=== PATIENT | female | born 1980 | race Caucasian/White ===

== ENCOUNTER 2023-04-20 19:51 | Emergency (ER) | payer OTHER ==
[2023-04-20 20:28] VITALS: BP 133/95
[2023-04-20] MEDS ORDERED: BACITRACIN ZINC OINT 1 PACKET TOP STA (20:51)
[2023-04-20] MEDS ORDERED: TETANUS/DIPHTHERIA/PERTUSSIS 0.5 ML SYRINGE IM ONE (20:51)
[2023-04-20] MEDS ORDERED: AMOX/CLAV 875 MG/125 MG TABLET PO STA (20:51)
--- NOTE | 2023-04-20 20:53 | ED Physician Documentation ---
History of Present Illness - Stated complaint Stated Complaint: DOG BITE TO FACE - Chief complaint Chief Complaint: Wound - Additonal information Additional information: Patient 42-year-old female presenting to the emergency department with chief complaint of dog bite to face. Was playing with the family dog who is site impaired. Dog does not have history of similar events. Became overly excited and bit her chin. Unknown last tetanus. Review of Systems Constitutional: denies: Fever Eyes: denies: Loss of vision Ears: denies: Loss of hearing Nose: denies: Rhinorrhea / runny nose Throat: denies: Dental pain / toothache Cardiac: denies: Chest pain / pressure Respiratory: denies: Dyspnea GI: denies: Abdominal Pain : denies: Dysuria Musculoskeletal: denies: Neck pain Neurologic: denies: Generalized weakness Psychiatric: denies: Depressed PD PAST MEDICAL HISTORY - Present Medications Home Medications: Ambulatory Orders Medication Instructions Recorded Confirmed Amox/Clav 875/125 [Augmentin] 1 tab PO Q12H #20 tablet 04/20/23 Bacitracin Zinc Oint 28.4 gm TOP BID #1 each 04/20/23 - Allergies Allergies/Adverse Reactions: Allergies Allergy/AdvReac Type Severity Reaction Status Date / Time No Known Drug Allergies Allergy Verified 04/20/23 20:53 PD ED PE NORMAL - General General: Alert and oriented X 3, No acute distress, Well developed/nourished - HEENT HEENT: Other (Superficial abrasions to the lower chin and submental area) - Cardiac Cardiac: RRR - Respiratory Respiratory: No respiratory distress - Derm Derm: Normal color - Extremities Extremities: No deformity Results - Vitals Vitals: Vital Signs - 24 hr 04/20/23 20:18 Temperature 37.6 C Heart Rate 137 H Respiratory 16 Rate Blood Pressure 133/95 H O2 Saturation 95 Oxygen O2 Source Room air PD Medical Decision Making - ED course Complexity details: d/w patient ED course: Patient 42-year-old female presenting with superficial abrasions to her chin and submental area. This is from dog bite that occurred earlier today. No through and through injuries. Area cleaned. Tetanus updated. Given course Augmentin. Discussed primary closure versus healing with secondary intention and increased risk for infection. At this time their wish would be to allow healing by secondary intention. Will discharge with wound care instructions. Clear return precautions given. Departure - Departure Disposition: 01 Home, Self Care Clinical Impression: Dog bite Qualifiers: Encounter type: initial encounter Qualified Code(s): W54.0XXA - Bitten by dog, initial encounter Facial abrasion Qualifiers: Encounter type: initial encounter Qualified Code(s): S00.81XA - Abrasion of other part of head, initial encounter Instructions: Bites Scratches Animal Prescriptions: Amox/Clav 875/125 [Augmentin] 1 tab PO Q12H #20 tablet Bacitracin Zinc Oint 28.4 gm TOP BID #1 each Comments: Thank you for allowing us to care for you today at [facility]. Pres[place] were [place] electronically [place] [facility] [place] [id number] [facility] [address] [place] [id number] Today in the emergency department you were started on antibiotics and had your tetanus immunization updated. I recommend twice daily application of a topical antibiotic ointment such as bacitracin to the abrasions on your chin and submental area. Please complete the course of antibiotics prescribed here in the emergency department. Please follow-up with your primary care doctor. If anytime the are signs or symptoms of infection such as increasing pain, swelling, redness, heat or purulent drainage please return to the emergency department.
== END 2023-04-20 21:28 | disposition home or self-care (01) ==
LOC: ED 19:51
DX: S00.81XA Abrasion of other part of head, initial encounter (principal); W54.0XXA Bitten by dog, initial encounter; Y93.89 Activity, other specified
CPT/HCPCS: 90471; 90715; 99283; A9270